=== PATIENT | female | born 1935 | race Caucasian/White ===

== ENCOUNTER 2024-04-16 11:41 | Inpatient (IN) | payer MEDICARE, SELFPAY ==
[2024-04-15] VITALS (12 sets, daily range): BP systolic 125–182; BP diastolic 69–112; BMI 22.1
--- NOTE | 2024-04-15 00:56 | ED.GENMED ---
History of Present Illness
General
Chief Complaint: Fall
Time Seen by Provider: 04/15/24 00:39
History of Present Illness
History of Present Illness:
88-year-old female with history of CAD status post stenting on baby aspirin presenting after a fall. Patient reports that she was trying to get her shoes off at bedtime and fell backward. She is unsure whether or not she struck her head. She
landed on her left side, arrives with obvious deformity to her left wrist. She denies numbness or tingling to the left upper extremity. She also reports pain in her right groin. She has not ambulated since the fall. She denies any prodromal
dizziness or lightheadedness. She denies any head pain or neck pain. She denies chest pain or difficulty breathing. Patient lives at home by herself, however is currently staying with family for the holidays. Son at bedside does note the patient
has been more unsteady as of recent. No additional history or symptoms obtained at this time.
Phy Exam
Physical Exam
Physical Exam:
General: Well-appearing, no clinical signs of dehydration, nontoxic and in no acute distress
HEENT: protecting airway
Neck: appears supple, no tenderness to the cervical spine
CV: Normal heart rate, regular rhythm
Resp: No accessory muscle use, no increased work of breathing, lungs clear to auscultation bilaterally
Abd: Soft and non-distended, no tenderness to palpation, normal bowel sounds
Extremities: Obvious deformity to the right wrist with distal sensation and pulses intact. Lower extremities appear aligned, however palpable tenderness to the right hip with decreased range of motion. No significant swelling. Distal sensation
and pulses intact.
Neuro: alert, no focal neurologic deficit
: deferred
Rectal: deferred
Psych: Normal affect
Skin: Intact
Course
Orders/Labs/Results
Orders:
Orders
04/15/24 00:55
CT Cervical Spine W/o Iv Contr Urgent
Comment:
Reason For Exam: fall
CT Head W/o Iv Contrast Urgent
Comment:
Reason For Exam: fall
Cardiac Monitoring- Treatment ONCE
Urinalysis Reflex To Culture Urgent
CR Chest Single View Urgent
Reason For Exam: fall, low O2
Wrist, Left 3 Views CR [CR Wrist - Left Min 3 Views] Urgent
Comment:
Reason For Exam: fall, deformity
04/15/24 00:56
Acetaminophen [Tylenol] 1,000 mg PO NOW STA
04/15/24 00:58
Ketorolac [Toradol] 15 mg IV NOW STA
04/15/24 00:59
COVID-19 Antigen Urgent
Source: Nasal Swab
Complete Blood Count/With Diff Urgent
Comprehensive Metabolic Panel Urgent
04/15/24 01:03
CT Pelvis W/o Iv Contrast Urgent
Comment:
Reason For Exam: fall, right pain
04/15/24 02:00
CR Wrist - Left Min 2 Views Urgent
Reason For Exam: post reduction
04/15/24 02:32
Morphine Sulfate 4 mg .ROUTE .STK-MED ONE
04/15/24 04:31
Admit/Transfer Patient As Directed
Co-Sign Provider:
Level of Care: Observation services
Assign to:: Medical/Surgical
Physician / Group: Hospitalist
Diagnosis: fall
PRN Pain Medication Management As Directed
May give lesser potent ordered pain med per pt: Yes
preference::
Protocol:: Medication orders for pain may be administered in a
manner that supports deferring to patient preference
when the pt is:
- Requesting an ordered lesser potent pain medication.
Least to most potent pain medications are defined
as: acetaminophen < NSAID < tramadol < opioids
(morphine, oxycodone, hydromorphone).
- Requesting a lesser dose of the same medication IF
ORDERED.
- Requesting a less intrusive route of administration
if both routes are prescribed by the provider (PO <
IV).
04/15/24 04:32
Code Status As Directed
Resuscitation Status: Full Code
04/15/24 Breakfast
Regular
At Your Request: Full Participation
Does patient need a safe tray?: No
04/15/24 06:46
Magnesium Hydroxide [Milk of Magnesia] 30 ml PO DAILYPRN PRN
Morphine Sulfate 2 mg IV Q2HPRN PRN
Tamsulosin [Flomax] 0.4 mg PO DAILYPRN PRN
04/15/24 06:46
ORTHOPEDIC CONSULT Routine
Consulting Provider: Klever Cuevas
Was physician already notified: Yes
Reason for consult: rigth displaced pubic rami fractures, left wrist fracture
Activity As Directed
Activity Level: With Assistance
Bladder Scan As Directed
Follow Bladder Retention/Intermittent Cath Algorithm?: Yes
PRN if no void in __ hours: 6
Comment: if not voiding 6 hrs upon arrival to floor, bladder scan & follow algorithm
Intake/ Output As Directed
Frequency: Per unit guidelines
Pneumatic Compression Sleeves As Directed
Type: Knee high
Straight Cath As Directed
Frequency: Per Retention Algorithm
Additional Instructions: straight cath as needed per acute urinary retention algorithm for 24 hrs
Additional Instructions: for bladder scan greater than 400 mL
Vital Signs As Directed
Frequency: Per unit guidelines
Oxygen Therapy [O2 Therapy] [RESP] Routine
Nasal Cannula Liter Flow: 2 LPM
Titrate/Wean O2 to maintain O2 sat greater than (%): 93
Rx Incentive Spirometry [RESP] Routine
Frequency: q1h while awake
Ot Eval And Treat Routine
Pt Eval And Treat Routine
Activity Level: With Assistance
DX Deep Vein Thrombosis Video Routine
04/15/24 08:00
Acetaminophen [Tylenol] 650 mg PO Q4HWA
Aspirin Low Dose EC [Aspir Low (Enteric Coated)] 81 mg PO DAILY
Ketorolac [Toradol] 15 mg IV Q6HPRN PRN
Lorazepam [Ativan] 0.5 mg PO DAILY
Ramipril [Altace] 2.5 mg PO DAILY
Rosuvastatin Calcium [Crestor] 20 mg PO DAILY
04/15/24 20:00
Docusate Sodium [Colace] 100 mg PO BID
Sennosides [Senokot] 17.2 mg PO BID
04/15/24 22:00
Atenolol [Tenormin] 25 mg PO HS
Abnormal Lab Results
04/15/24
00:59
RBC 4.14 L 10^6/uL
(4.20-5.40)
MCH 32.4 H pg
(27.0-31.0)
Abs Immat Gran (auto) 0.1 H 10^3/uL
(0-0.05)
Absolute Neuts (auto) 8.9 H 10^3/uL
(1.4-6.5)
Absolute Lymphs (auto) 0.6 L 10^3/uL
(1.2-3.4)
Immature Gran % 0.8 H %
(0-0.5)
Neutrophils % 89.6 H %
(42.2-75.2)
Lymphocytes % 5.7 L %
(20.5-51.1)
BUN 24 H mg/dl
(7-17)
Creatinine 1.3 H mg/dL
(0.6-1.0)
Glucose 116 H mg/dl
(70-99)
04/15/24 00:59
04/15/24 00:59
Vital Signs
Initial and Last Documented VS:
Initial Vital Signs
Temp Pulse Resp BP Pulse Ox
98.0 F 104 20 182/95 86
04/15/24 00:37 04/15/24 00:37 04/15/24 00:37 04/15/24 00:37 04/15/24 00:37
Last Documented Vital Signs
Temp Pulse Resp BP Pulse Ox
97.1 F 92 18 148/69 91
04/15/24 15:00 04/15/24 15:00 04/15/24 15:00 04/15/24 15:00 04/15/24 15:00
Procedures
Joint/Fracture Reduction
Right Wrist:
Indication for procedure:: fracture/dislocation
Procedure completed by: Norma Fulton DO
Anesthesia/sedation: 1% Lidocaine and Regional block (hematoma block)
Injury was: closed
Further treatement: no treatment needed
Post reduction exam: stable
Capillary Refill: normal
Normal distal neurovascular exam?: Yes
MDM/Problems Addressed
MDM/Problems Addressed:
88-year-old female presenting after a fall after she lost her balance trying to take her shoes off. Vital signs on arrival significant for low oxygenation.
On exam patient is resting comfortably, GCS of 15. Fall appears to be mechanical in quality, denies prodromal symptoms such as dizziness or lightheadedness suspect near syncope. No significant signs of head trauma, no palpable C-spine tenderness,
however patient is unsure whether or not she struck her head. For this reason we will obtain CT brain imaging. No abnormality to the chest or abdomen, no palpable tenderness. However is noted to be slightly hypoxic on arrival. Denies any
respiratory symptoms. Will screen with chest x-ray imaging and COVID. Obvious deformity to left wrist without neurovascular compromise. Will obtain x-ray imaging. Decreased range of motion to the right hip, will obtain a right hip x-ray imaging.
Tylenol and Toradol administered for pain.
02:00 -hematoma block performed and wrist was subsequently reduced to best ability. Did not want to pursue bedside sedation given presenting hypoxia. Patient tolerated procedure well, placed in splint. Repeat x-ray ordered. CT of the pelvis
shows right pelvic rami fracture. Patient unable to ambulate at this time. This reason, feel patient warrants admission for PT/OT consultation, pain management, continued monitoring of vital signs.
*Critical Care Note
Total Time (30-74mins, 75-104mins- exclusive of procedures): Not Applicable
ED Attending Note
-
Portions of this chart may have been created with voice recognition software.� Occasional wrong word or��sound alike� substitutions may have occurred due to the inherent limitations of voice recognition software.
Discharge Plan
Departure
Patient Disposition: Admit
Presentation/result/management discussed w/ accepting MD/DO: Hospitalist
Patient with high blood pressure during this ER visit?: No
Discharge Problem:
Closed pelvic fracture, Fracture of wrist, closed
Interventions
Interventions:
*Risk Screen - Suicide Last Done: 04/15/24 00:37
*General Assessment Last Done: 04/15/24 00:37
*Neglect/Abuse Screening Last Done: 04/15/24 00:37
ED- Fall Risk Assessment Last Done: 04/15/24 04:39
*ED COVID-19 Vaccine History Last Done: 04/15/24 10:21
*Nursing Disposition Last Done: 04/15/24 06:33
ED-Musculoskeletal Assessment Last Done: 04/15/24 04:39
ED- Neurological Assessment Last Done: 04/15/24 04:39
ED-Skin Assessment Last Done: 04/15/24 04:39
Discharge Date and Time
Discharge Date/Time: 04/15/24 06:33
[2024-04-15] MEDS: TORADOL 15 MG IV (01:53)
--- NOTE | 2024-04-15 04:01 | DOWNTIME ---
There was a [employer] Downtime on 04/15/2024 from 0100 to 04/15/2024 at 0350. Downtime documentation of patient's care, including medication administrations, has been reconciled in the electronic record per guidelines. Refer to the
patient's paper chart under the miscellaneous tab to see printed paper medication records and downtime forms.
--- NOTE | 2024-04-15 04:13 | HPS.HSE ---
Family Physician
-
Family Physician: NOT KNOW UNKNOWN - PT DOES
Chief Complaint
-
Fall
History of Present Illness
This is an 88-year-old female who has a past medical history that is significant for hypertension, CAD status post stent and presents to the emergency department after falling at family members at home.
Patient reported being in usual state of health. She was trying to go to bed when the event happened. She was trying to take off her shoes but her pants were off with them so she fell. She braced herself with left hand. She arrived in ED with a
left wrist deformity and complained of right hip/groin pain. There was no loss of consciousness. She did not strike her head. She was able to get up but had significant pain and was unable to walk so EMS was called and patient was brought to the
emergency department. She has no who recent acute illnesses. Patient tells me that she had a cardiology visit last year and an echo pending this year. She denies history of dizziness, palpitations, chest discomfort, exertional or chest pain or
dyspnea on exertion. She denies any lower extremity swelling.
In the ED she was afebrile. Blood pressure was 150/80 and she was nontachycardic. She was slightly hypoxic to 88 on room air. She was also placed on 2 L nasal cannula. The wrist x-ray shows a displaced left wrist fracture. Chest x-ray shows no
acute infiltrates. The CT of the head and C-spine shows no acute abnormalities. The CT of the pelvis shows a right pelvic fracture, there was a slightly displaced acute fracture of the right inferior pubic ramus as well as the superior pubic ramus
with a small amount of extraperitoneal hemorrhage.
She received a hemiblock and wrist placed in a cast.
Medical History
Past Medical History
Past Medical History: Reports CAD, HTN and Hypercholesterolemia
Past Surgical History: Reports None
Social History
Tobacco: Non-smoker
Alcohol: None
Drug: None
Personal: Single
Living: Alone
Employment: Retired
Family History
Family History: Not pertinent
Allergies / Home Medications
Allergies reflects when Allergies were last updated in [facility].
Home Medications with original date entered in [facility]
Allergy/Medication List:
Allergies
Allergy/AdvReac Type Severity Reaction Status Date / Time
acetaminophen [From Percocet] Allergy Unknown Verified 04/15/24 00:57
aspirin Allergy Unknown Verified 04/15/24 00:57
ciprofloxacin [From Cipro] Allergy Unknown Verified 04/15/24 00:57
epinephrine Allergy Unknown Verified 04/15/24 00:57
oxycodone [From Percocet] Allergy Unknown Verified 04/15/24 00:57
steroids Allergy Unknown Uncoded 04/15/24 00:57
Home Medications
Calcium +D3 PO DAILY 04/15/24
Probiotic PO DAILY 04/15/24
Tylenol 500 mg PO DAILY PRN pain 04/15/24
Vitamin B12 1,000 mcg PO DAILY 04/15/24
ascorbic acid (vitamin C) 1,000 mg tablet (Vitamin C) 1,000 mg PO DAILY 04/15/24
aspirin 81 mg tablet,delayed release 81 mg PO DAILY 04/15/24
atenolol 25 mg tablet 25 mg PO HS 04/15/24
lorazepam 0.5 mg tablet 0.5 mg PO DAILY 04/15/24
ramipril 2.5 mg capsule 2.5 mg PO DAILY 04/15/24
rosuvastatin 20 mg tablet 20 mg PO DAILY 04/15/24
vitamin E 400 unit tablet 80 mg PO DAILY 04/15/24
Review of Systems
-
History Source: Patient
Constitutional: Reports No Symptoms
EENT: Reports No Symptoms
Respiratory: Reports No Symptoms
Cardiac: Reports No Symptoms
Abdomen/GI: Reports No Symptoms
: Reports No Symptoms
Musculoskeletal: Reports Joint Pain
Skin: Reports No Symptoms
Neurological: Reports No Symptoms
Endocrine: Reports No Symptoms
Hematologic/Lymphatic: Reports No Symptoms
Psych: Reports No Symptoms
Physical Exam
Vital Signs
Vital Signs
Temp Pulse Resp BP Pulse Ox
98.0 F 107 25 157/95 94
04/15/24 00:37 04/15/24 03:00 04/15/24 03:00 04/15/24 03:00 04/15/24 03:00
Physical Exam
General: Well Developed, Well Nourished, Comfortable and Pain
HEENT: NormoCephalic, Anicteric, Moist mucous membranes and Atraumatic
Respiratory: Clear
Cardiac: S1/S2 and Tachycardia
Breast: Deferred by me
GI: Soft, Non Tender, Non Distended and Normal Bowel Sounds
Rectal: Deferred by Provider
Genito-urinary: Deferred by me
Musculoskeletal: No Clubbing, No Cyanosis, No Edema and Other (Left arm/wrist cast. )
Skin: Warm
Neuro: AO x 3
Hematologic/Lymphatic: No Lymphadenopathy
Psych: Calm
Data Reviewed
-
Diagnostic Radiology: Image Personally Visualized and interpreted
CT Scan: Report Reviewed by me
Lab Data: Labs Reviewed by me
Old Records: Reviewed
Impression/Plan
-
IMPRESSION:
Mechanical fall with left wrist fracture s/p splint and a right hip inferior and superior pubic rami fractures w/ minimal displacement. Not on any blood thinners.
PLAN:
1. Fall with fractures
- admit to med surg
- PTOT evaluation
- pain control, anti emetics
- DVT PPX
- D/W Ortho- To see in am. Non-op. Will place patient on diet. WBAT for LE, sling for L wrist
2. CAD s/p Stenting -
- continue aspirin and rosuvastatin
3. HTN
- continue ramipril 2.5 mg
4. Hypoxia - Clear lungs. No h/o asthma, copd, chf or pulmonary fibrosis. No wheezes or crackles on exam. No chest pain. Suspect atelectasis
- incentive spirometry for now
- pain control
- supplemental o2
Code status - Full Code
[2024-04-15 04:18] LABS: % Basophils 0.3 % (0-2); % Eosinophils 0.6 % (0-6); % Immature Granulocytes 0.8 % (0-0.5); % Lymphocytes 5.7 % (20.5-51.1); % Neutrophils 89.6 % (42.2-75.2); ALT (SGPT) 30 U/L (0-35); AST (SGOT) 34 U/L (14-36); Absolute Eosinophils 0.1 10^3/uL (0-0.7); Absolute Immature Granulocytes 0.1 10^3/uL (0-0.05); Absolute Lymphocytes 0.6 10^3/uL (1.2-3.4); Absolute Monocytes 0.3 10^3/uL (0.1-0.6); Absolute Neutrophils 8.9 10^3/uL (1.4-6.5); Albumin 4.1 g/dl (3.5-5.0); Alkaline Phosphatase 112 U/L (38-126); Blood Urea Nitrogen 24 mg/dl (7-17); Calcium 9.1 mg/dl (8.4-10.2); Carbon Dioxide 28 mmol/L (22-30); Chloride 102 mmol/L (98-107); Estimated Creatinine Clearance 26 ml/min; Glucose 116 mg/dl (70-99); Hematocrit 39.1 % (37.0-47.0); Hemoglobin 13.4 g/dL (12.0-16.0); Mean Corp Hgb Conc. 34.3 g/dL (33.0-37.0); Mean Corpuscular Hgb 32.4 pg (27.0-31.0); Mean Corpuscular Volume 94.4 fL (81.0-99.0); Nucleated Red Blood Cells % 0 %; Platelet Count 193 10^3/uL (130-400); Potassium 4.2 mmol/L (3.5-5.1); Red Blood Cell Count 4.14 10^6/uL (4.20-5.40); Sodium 139 mmol/L (135-145); Total Bilirubin 0.4 mg/dl (0.2-1.3); Total Protein 6.6 g/dl (6.3-8.2); eGFR 39.55
[2024-04-15 04:22] LABS: COVID-19 Antigen Negative (Negative)
--- NOTE | 2024-04-15 04:44 | W.PN.UPDATE ---
Update Note
Progress Note Update
With R Pubic Rami fxs and L distal radius/ulna fxs
No surgery indicated at this time
Splint/sling L UE all times
Full WB B/L LE
DVT prophylaxis as per Hosp service
Have F/U with me as outpt in about 10-14 days
thanks
GGMD
[2024-04-15] MEDS: CRESTOR 20 MG PO (10:14)
[2024-04-15] MEDS: ALTACE 2.5 MG PO (10:14)
[2024-04-15] MEDS: ASPIR LOW (ENTERIC COATED) 81 MG PO (10:14)
[2024-04-15] MEDS: ATIVAN 0.5 MG PO (10:14)
[2024-04-15] MEDS: TYLENOL 650 MG PO ×5 (10:14→23:07)
--- NOTE | 2024-04-15 14:07 | CM ---
Addendum entered by Chauncey Herrera 04/15/24 15:33:
CM spoke w/ Lorena/[facility] re poss admission due to pt's fractures
Per Lorena, will have to discuss w/ medical center manager since pt is admitted in OBS status
Faxed clinicals to [phone], will await determination.
Family updated at bedside
Original Note:
Pt seen bedside. Initial assessment completed
Pt lives alone in a single story home-1 step to enter. Pt is independent w/ ambulating. Pt states she has grab bars in the home.
Pt denies SNF in the past but according to son, pt was at [facility] before
Pt denies VN/PT in the past
Address, point of contact and insurance verified
PCP: Dr. Wallace
[facility]
PT/OT evaluated pt today w/ current recommendation of skilled rehab at this time.
Spoke w/ pt's son, Darryl, re SNF need. Per Darryl, pt will stay w/ him for a while as she does live alone in [place] and does not feel comfortable anymore w/ pt residing by herself. Per Darryl, pt had a fall in the past and is beginning to be
concerning and is planning for pt to stay w/ him in the foreseeable future. Darryl stated pt was at [facility] before for SNF and would imagine pt would want to explore facility again but would advise for pt to choose herself. Darryl stated he will
be at w/ his soon and can discuss further.
Pt is currently admitted under OBS status and will have to private pay for SNF if agreeable.
Plan: SNF being currently recommended
--- NOTE | 2024-04-15 15:09 | W.PN.HOSP.TC ---
Today's Communication/Plan
-
Physical therapy.
Rehab placement
Assessment / Plan
Assessment / Plan
Impression:
Right pubic rami fracture.
Left distal radius/ulna fracture all secondary to mechanical fall and osteoporosis.
Transient hypoxia likely secondary to atelectasis and pain.
Other conditions:
CAD with history of stenting.
Essential hypertension.
Plan:
Right pubic rami and left distal radius and ulna fracture secondary to mechanical fall and osteoporosis
Orthopedic input appreciated.
No requirement for surgical intervention.
Continue physical therapy. Then rehab placement
Transient hypoxia likely due to pain and atelectasis.
No indication of infection, decompensated CHF, asthma.
Wean off oxygen as tolerates. Currently on room air
CAD with history of stenting.
Continue aspirin and statin.
Essential hypertension.
Continue ramipril.
Check orthostatics.
Anticipated Discharge: 24 - 48 hours
Subjective/Interval History
-
Date of Service: April 15, 2024
Objective Data
-
Labs:
Laboratory Results
04/15/24
00:59
WBC 10.0
Hgb 13.4
Hct 39.1
Plt Count 193
Sodium 139
Potassium 4.2
Chloride 102
Carbon Dioxide 28
BUN 24 H
Creatinine 1.3 H
Glucose 116 H
Calcium 9.1
Total Bilirubin 0.4
AST 34
ALT 30
Alkaline Phosphatase 112
Vital Signs:
Vital Signs
Temp Pulse Resp BP Pulse Ox
98.7 F 99 19 176/86 96
04/15/24 07:00 04/15/24 07:00 04/15/24 07:00 04/15/24 07:00 04/15/24 07:00
Physical Exam
-
General: Well Developed and No Apparent Distress
HEENT: Normocephalic, Atraumatic and Moist Mucous Membranes
Respiratory: Clear to Auscultation
Cardiac: Regular Rhythm and S1/S2; Negative Murmur, Rub or Gallop
GI: Soft, Nontender, Nondistended and Normal Bowel Sounds; Negative Organomegaly
Rectal: Deferred by Provider
Musculoskeletal: No Clubbing, No Cyanosis and No Edema
Skin: Negative Rash
Neuro: Awake, Alert, Oriented and Nonfocal/Grossly Intact
[2024-04-15] MEDS: SENOKOT PO ×2 (19:42→19:49)
[2024-04-15] MEDS: COLACE PO ×2 (19:42→19:49)
[2024-04-15] MEDS: MORPHINE SULFATE 2 MG IV (19:53)
[2024-04-15] MEDS: TENORMIN 25 MG PO (23:07)
[2024-04-16] MEDS: TYLENOL 650 MG PO ×5 (04:21→20:33)
[2024-04-16 07:00] VITALS: BP 139/60
[2024-04-16] MEDS: CRESTOR 20 MG PO (09:40)
[2024-04-16] MEDS: COLACE 100 MG PO (09:40)
[2024-04-16] MEDS: ASPIR LOW (ENTERIC COATED) 81 MG PO (09:40)
[2024-04-16] MEDS: SENOKOT 17.2 MG PO (09:41)
[2024-04-16] MEDS: ALTACE 2.5 MG PO (09:41)
[2024-04-16] MEDS: ATIVAN 0.5 MG PO (09:41)
--- NOTE | 2024-04-16 11:34 | W.PN.HOSP.TC ---
Today's Communication/Plan
-
Recheck BMP
Await SNF
Assessment / Plan
Assessment / Plan
Gen-AAOx3, NAD
HEENT-NC, AT, anicteric, clear oral mm
Neck-supple
CV-reg, no M, +S1/S2
Lungs-clear B/L
Abd-soft, NT, ND
Ext-no edema
Musculoskeletal-no cyanosis, clubbing
Skin-warm and dry
Neuro-grossly non-focal
Psych-calm, cooperative
Acute traumatic pelvic fractures -due to fall, osteoporosis. CT scan notes subtle nondisplaced fractures of the right inferior pubic ramus, right superior pubic ramus with involvement of the pubic body. Old healed fractures of the left pubic bones.
Weightbearing as tolerated per orthopedics. PT/OT.
Acute traumatic distal left radial fracture -due to fall, osteoporosis.
Chronic vertebral compression deformities -chronic compression fractures of T4 and T5, minimal chronic compression of T3 noted on cervical spine CT.
Renal insufficiency -unclear if acute versus chronic. Creatinine 1.3 on admission, recheck today.
Transient hypoxia likely secondary to atelectasis and pain.
CAD - with history of stenting. Stable.
Essential hypertension -presentation with hypertensive urgency, resolved. Continue home meds.
Hyperlipidemia -Crestor.
Full code
Dispo -awaiting discharge to SNF.
Anticipated Discharge: Within 24 hours
Subjective/Interval History
-
Date of Service: April 16, 2024
Patient seen and examined. Complaining of some arm pain.
Objective Data
-
Labs:
Laboratory Results
04/16/24
11:27
Sodium Pending
Potassium Pending
Chloride Pending
Carbon Dioxide Pending
BUN Pending
Creatinine Pending
Glucose Pending
Calcium Pending
Vital Signs:
Vital Signs
Temp Pulse Resp BP Pulse Ox
98.9 F 63 20 139/60 96
04/16/24 07:00 04/16/24 07:00 04/16/24 07:00 04/16/24 07:00 04/16/24 07:00
I&O
04/15/24 04/16/24 04/17/24
06:59 06:59 06:59
Intake Total 600 / 600
Output Total 600 / 600
Balance 0 / 0
Review of Systems
-
History Source: Patient
All other systems: Reviewed and negative
[2024-04-16 12:15] LABS: Blood Urea Nitrogen 36 mg/dl (7-17); Calcium 8.3 mg/dl (8.4-10.2); Carbon Dioxide 26 mmol/L (22-30); Chloride 102 mmol/L (98-107); Estimated Creatinine Clearance 31 ml/min; Glucose 153 mg/dl (70-99); Potassium 3.9 mmol/L (3.5-5.1); Sodium 137 mmol/L (135-145); eGFR 48.33
[2024-04-16 15:00] VITALS: BP 128/62
[2024-04-16] MEDS: COLACE PO (20:36)
[2024-04-16] MEDS: SENOKOT PO (20:36)
[2024-04-16] MEDS: TENORMIN 25 MG PO (20:37)
[2024-04-16] MEDS: MORPHINE SULFATE 2 MG IV (20:44)
[2024-04-16 23:16] VITALS: BP 156/73
[2024-04-17] MEDS: TYLENOL PO ×4 (00:04→23:01)
[2024-04-17 07:00] VITALS: BP 157/70
[2024-04-17] MEDS: CRESTOR 20 MG PO (09:07)
[2024-04-17] MEDS: TYLENOL 650 MG PO ×3 (09:08→20:05)
[2024-04-17] MEDS: ASPIR LOW (ENTERIC COATED) 81 MG PO (09:08)
[2024-04-17] MEDS: ALTACE 2.5 MG PO (09:08)
[2024-04-17] MEDS: ATIVAN 0.5 MG PO (09:08)
[2024-04-17] MEDS: SENOKOT 17.2 MG PO ×2 (09:08→20:05)
[2024-04-17] MEDS: COLACE 100 MG PO ×2 (09:08→20:04)
--- NOTE | 2024-04-17 11:00 | W.PN.HOSP.TC ---
Today's Communication/Plan
-
Stop Toradol
Stop morphine
Oxy IR as needed
Bowel regimen
Discharge planning
Assessment / Plan
Assessment / Plan
Gen-AAOx3, NAD
HEENT-NC, AT, anicteric, clear oral mm
Neck-supple
CV-reg, no M, +S1/S2
Lungs-clear B/L
Abd-soft, NT, ND
Ext-no edema
Musculoskeletal-no cyanosis, clubbing
Skin-warm and dry
Neuro-grossly non-focal
Psych-calm, cooperative
Acute traumatic pelvic fractures -due to fall, osteoporosis. CT scan notes subtle nondisplaced fractures of the right inferior pubic ramus, right superior pubic ramus with involvement of the pubic body. Old healed fractures of the left pubic bones.
Weightbearing as tolerated per orthopedics. PT/OT.
Acute traumatic distal left radial fracture -due to fall, osteoporosis. Stop IV morphine, use oxycodone 5 mg every 4 hours as needed severe pain. Continue Tylenol. Stop ketorolac given renal insufficiency.
Chronic vertebral compression deformities -chronic compression fractures of T4 and T5, minimal chronic compression of T3 noted on cervical spine CT.
TIM -likely due to volume depletion. Creatinine improved with IV fluids. Monitor for now. Stop NSAIDs.
Transient hypoxia likely secondary to atelectasis and pain.
CAD - with history of stenting. Stable.
Essential hypertension -presentation with hypertensive urgency, resolved. Continue home meds.
Hyperlipidemia -Crestor.
Full code
Dispo -awaiting discharge to SNF. Medically stable for discharge. Case management aware. Discussed with patient.
Anticipated Discharge: Within 24 hours
Subjective/Interval History
-
Date of Service: April 17, 2024
Patient seen and examined. Complaining of left wrist pain.
Objective Data
-
Vital Signs:
Vital Signs
Temp Pulse Resp BP Pulse Ox
98.3 F 75 18 157/70 97
04/17/24 07:00 04/17/24 07:00 04/17/24 07:00 04/17/24 07:00 04/17/24 07:00
I&O
04/16/24 04/17/24 04/18/24
06:59 06:59 06:59
Intake Total 600 / 600 60 / 60
Output Total 600 / 600 325 / 325
Balance 0 / 0 -265 / -265
Review of Systems
-
History Source: Patient
All other systems: Reviewed and negative
--- NOTE | 2024-04-17 11:12 | CM ---
Addendum entered by Chauncey Herrera 04/17/24 15:00:
Per Dinah/Andre Irizarry is able to accept pt on Saturday when medically stable
Per hospitalist, agreeable to d/c on Saturday
Pt and son updated.
Will need ambulance transport, transport forms on chart
IMM reviewed w/ pt, pt given copy. Copy placed on chart
[facility]
Report: [phone] (ASK FOR 2ND FLR)

Plan: [facility] via ambulance
Original Note:
Pt seen bedside w/ hospitalist. Per hospitalist, pt is medically stable for d/c.
Pt LOC to IP yesterday
Discussed rehab options to begin referring to. Pt was at [facility] in the past, per pt she does not want to go back to [facility] as her sleeping experience was not satisfactory.
Per pt, she would like referrals sent to facilities in and/or near her son's area, [place].
Referrals sent to [facility], [facility], [facility], [facility], [facility], [facility], [facility], and [facility]. Pending determination.
Pt sonDarryl, updated. Per Darryl, he would like to still consider [facility] as last option but will respect what pt wants.
Plan: SNF; pending bed availability
[2024-04-17] MEDS: MIRALAX 17 GRAMS PO (11:47)
[2024-04-17 14:26] VITALS: BP 111/52; PULSE 79; O2SAT 97
[2024-04-17 15:00] VITALS: BP 130/63
[2024-04-17] MEDS: ROXICODONE 5 MG PO (20:06)
[2024-04-17] MEDS: TENORMIN 25 MG PO (22:25)
[2024-04-17 23:00] VITALS: BP 127/68
[2024-04-18] MEDS: TYLENOL PO ×3 (03:00→23:42)
[2024-04-18 07:51] VITALS: BP 147/71
[2024-04-18] MEDS: MIRALAX 17 GRAMS PO (07:56)
[2024-04-18] MEDS: TYLENOL 650 MG PO ×3 (07:56→21:21)
[2024-04-18] MEDS: COLACE 100 MG PO ×2 (07:56→21:19)
[2024-04-18] MEDS: CRESTOR 20 MG PO (07:56)
[2024-04-18] MEDS: ASPIR LOW (ENTERIC COATED) 81 MG PO (07:56)
[2024-04-18] MEDS: ALTACE 2.5 MG PO (07:57)
[2024-04-18] MEDS: ATIVAN 0.5 MG PO (07:59)
[2024-04-18] MEDS: SENOKOT PO (08:02)
[2024-04-18 10:47] LABS: Blood Urea Nitrogen 22 mg/dl (7-17); Calcium 8.3 mg/dl (8.4-10.2); Carbon Dioxide 25 mmol/L (22-30); Chloride 101 mmol/L (98-107); Estimated Creatinine Clearance 37 ml/min; Glucose 145 mg/dl (70-99); Potassium 3.8 mmol/L (3.5-5.1); Sodium 136 mmol/L (135-145); eGFR > 60.00
--- NOTE | 2024-04-18 11:12 | W.PN.HOSP.TC ---
Today's Communication/Plan
-
Continue current care
Assessment / Plan
Assessment / Plan
Gen-AAOx3, NAD
HEENT-NC, AT, anicteric, clear oral mm
Neck-supple
CV-reg, no M, +S1/S2
Lungs-clear B/L
Abd-soft, NT, ND
Ext-no edema
Musculoskeletal-no cyanosis, clubbing
Skin-warm and dry
Neuro-grossly non-focal
Psych-calm, cooperative
Acute traumatic pelvic fractures -due to fall, osteoporosis. CT scan notes subtle nondisplaced fractures of the right inferior pubic ramus, right superior pubic ramus with involvement of the pubic body. Old healed fractures of the left pubic bones.
Weightbearing as tolerated per orthopedics. PT/OT.
Acute traumatic distal left radial fracture -due to fall, osteoporosis. Continue oxycodone as needed. Continue arm in sling per orthopedics.
Chronic vertebral compression deformities -chronic compression fractures of T4 and T5, minimal chronic compression of T3 noted on cervical spine CT.
TIM -likely due to volume depletion. Creatinine improved with IV fluids. Monitor for now. Stop NSAIDs.
Transient hypoxia likely secondary to atelectasis and pain.
CAD - with history of stenting. Stable.
Essential hypertension -presentation with hypertensive urgency, resolved. Continue home meds.
Hyperlipidemia -Crestor.
Full code
Dispo -awaiting discharge to SNF, discharge tomorrow per case management.
Anticipated Discharge: Within 24 hours
Subjective/Interval History
-
Date of Service: April 18, 2024
Patient seen and examined. No new complaints.
Objective Data
-
Labs:
Laboratory Results
04/18/24
10:23
Sodium 136
Potassium 3.8
Chloride 101
Carbon Dioxide 25
BUN 22 H
Creatinine 0.9
Glucose 145 H
Calcium 8.3 L
Vital Signs:
Vital Signs
Temp Pulse Resp BP Pulse Ox
97.9 F 78 18 147/71 95
04/18/24 07:51 04/18/24 07:57 04/18/24 07:51 04/18/24 07:57 04/18/24 09:45
I&O
04/17/24 04/18/24 04/19/24
06:59 06:59 06:59
Intake Total 60 / 60 960 / 960 150 / 150
Output Total 325 / 325 200 / 200
Balance -265 / -265 960 / 960 -50 / -50
Review of Systems
-
History Source: Patient
All other systems: Reviewed and negative
[2024-04-18 15:25] VITALS: BP 123/54
--- NOTE | 2024-04-18 16:05 | CM ---
Called [facility] and spoke to Jimbo.
Stated would like transport set up approx 11:30am
transport forms on chart. revenue stamp clerk aware & will set up transport.
PLAN: [facility]
Report: [phone] (ASK FOR 2ND FLR)
[2024-04-18] MEDS: ROXICODONE 5 MG PO (21:17)
[2024-04-18] MEDS: SENOKOT 17.2 MG PO (21:19)
[2024-04-18] MEDS: TENORMIN 25 MG PO (21:24)
[2024-04-18 23:05] VITALS: BP 124/51
[2024-04-19] MEDS: TYLENOL PO ×2 (03:00→11:13)
[2024-04-19] MEDS: ALTACE 2.5 MG PO (08:04)
[2024-04-19] MEDS: MIRALAX PO (08:04)
[2024-04-19] MEDS: CRESTOR 20 MG PO (08:04)
[2024-04-19] MEDS: TYLENOL 650 MG PO (08:04)
[2024-04-19] MEDS: ASPIR LOW (ENTERIC COATED) 81 MG PO (08:04)
[2024-04-19] MEDS: COLACE PO (08:04)
[2024-04-19] MEDS: SENOKOT PO (08:04)
[2024-04-19] MEDS: ATIVAN 0.5 MG PO (08:06)
[2024-04-19 08:46] VITALS: BP 157/71
--- NOTE | 2024-04-19 11:11 | W.DS.TRANS ---
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
-
Discharge Instructions:
Discharge Diagnosis/Procedures Pelvic fracture pain
Left distal radius and ulna fracture
Diet Regular
Activity With assistance
Driving Restrictions No driving
Bathing Restrictions None
Instructions:
Stand-Alone Forms:
Changes to Home Medications: No
Discharge Medications:
DC Medications w/original date entered in [employer]
Calcium +D3 PO DAILY Supplement 04/15/24
Probiotic PO DAILY Supplement 04/15/24
Tylenol 500 mg PO DAILY PRN pain 04/15/24
Vitamin B12 1,000 mcg PO DAILY Supplement 04/15/24
ascorbic acid (vitamin C) 1,000 mg tablet (Vitamin C) 1,000 mg PO DAILY Supplement 04/15/24
aspirin 81 mg tablet,delayed release 81 mg PO DAILY Blood Clot Prevention/Tx 04/15/24
atenolol 25 mg tablet 25 mg PO HS Blood Pressure 04/15/24
lorazepam 0.5 mg tablet 0.5 mg PO DAILY #10 tabs 04/15/24
ramipril 2.5 mg capsule 2.5 mg PO DAILY Blood Pressure 04/15/24
rosuvastatin 20 mg tablet 20 mg PO DAILY High Cholesterol 04/15/24
vitamin E 400 unit tablet 80 mg PO DAILY Supplement 04/15/24
oxycodone 5 mg tablet 5 mg PO Q4HPRN PRN severe pain #8 tabs 04/19/24
Home Medication Changes
Pending Results: No
--- NOTE | 2024-04-19 11:11 | W.PN.HOSP.TC ---
Today's Communication/Plan
-
Discharge
Assessment / Plan
Assessment / Plan
Gen-AAOx3, NAD
HEENT-NC, AT, anicteric, clear oral mm
Neck-supple
CV-reg, no M, +S1/S2
Lungs-clear B/L
Abd-soft, NT, ND
Ext-no edema
Musculoskeletal-no cyanosis, clubbing
Skin-warm and dry
Neuro-grossly non-focal
Psych-calm, cooperative
Acute traumatic pelvic fractures -due to fall, osteoporosis. CT scan notes subtle nondisplaced fractures of the right inferior pubic ramus, right superior pubic ramus with involvement of the pubic body. Old healed fractures of the left pubic bones.
Weightbearing as tolerated per orthopedics. PT/OT.
Acute traumatic distal left radial fracture -due to fall, osteoporosis. Continue oxycodone as needed. Continue arm in sling per orthopedics.
Chronic vertebral compression deformities -chronic compression fractures of T4 and T5, minimal chronic compression of T3 noted on cervical spine CT.
TIM -likely due to volume depletion. Creatinine improved with IV fluids. Monitor for now. Stop NSAIDs.
Transient hypoxia likely secondary to atelectasis and pain.
CAD - with history of stenting. Stable.
Essential hypertension -presentation with hypertensive urgency, resolved. Continue home meds.
Hyperlipidemia -Crestor.
Full code
Dispo -medically stable for discharge to SNF. Outpatient follow-up.
32 minutes spent in discharge process.
Anticipated Discharge: Today
Subjective/Interval History
-
Date of Service: April 19, 2024
Patient seen and examined. Complaining of pelvic pain due to fracture.
Objective Data
-
Vital Signs:
Vital Signs
Temp Pulse Resp BP Pulse Ox
98 F 77 20 157/71 93
04/19/24 08:46 04/19/24 08:46 04/19/24 08:46 04/19/24 08:46 04/19/24 08:47
I&O
04/18/24 04/19/24 04/20/24
06:59 06:59 06:59
Intake Total 960 / 960 630 / 630 240 / 240
Output Total 400 / 400 200 / 200
Balance 960 / 960 230 / 230 40 / 40
Review of Systems
-
History Source: Patient
All other systems: Reviewed and negative
== END 2024-04-19 12:03 | DRG 543 ==
LOC: 4 WEST ACU 11:41
PROVIDERS: ADMITTING PHYSICIAN Internal Medicine; ATTENDING PHYSICIAN Hospitalist; CONSULT PHYSICIAN Orthopaedic Surgery Hand Surgery; EMERGENCY PHYSICIAN Student in an Organized Health Care Education/Training Program
DX: M80.0B1A Age-related osteoporosis with current pathological fracture, right pelvis, initial encounter for fracture (principal); J98.11 Atelectasis; S32.591A Other specified fracture of right pubis, initial encounter for closed fracture; N17.9 Acute kidney failure, unspecified; I25.10 Atherosclerotic heart disease of native coronary artery without angina pectoris; Z95.5 Presence of coronary angioplasty implant and graft; I10 Essential (primary) hypertension; W19.XXXA Unspecified fall, initial encounter; Z11.52 Encounter for screening for COVID-19
CPT/HCPCS: 25605; 64450; 70450; 71045; 72125; 72192; 73100; 73110; 80048; 80053; 85025; 87811; 96374; 97163; 97166; 97530; 97535; 99285